=== PATIENT | male | born 1995 | race Caucasian/White ===

== ENCOUNTER 2023-12-27 10:55 | Emergency (ER) | payer OTHER, SELFPAY ==
--- NOTE | ~2023-12-27 | CT_ITS ---
EXAMINATION: CT lumbar spine wo con DATE: 12/27/2023 11:53 INDICATION: Low back pain. TECHNIQUE: Computed tomography (CT) of the lumbar spine was performed without intravenous contrast. A utomated exposure control and iterative reconstruction technique were employed. The dose-length produ ct was 174.27 mGy-cm. COMPARISON: None FINDINGS: There is 7 degrees dextrocurvature of lumbar spine. There is mild chronic anterior wedging of L1 and L2 vertebral bodies. There are Schmorl's nodes at multiple levels. There is 3 mm retrolisth esis of L5 on S1. There is mildly decreased disc height at L3-L4, L4-L5, and L5-S1. The following dis c levels are specifically discussed: L1-L2: The disc does not extend beyond the endplate margin. There is mild bilateral facet joint osteo arthritis. There is no neural foraminal stenosis. There is no central canal stenosis. L2-L3: The disc does not extend beyond the endplate margin. There is mild bilateral facet joint osteo arthritis. There is no neural foraminal stenosis. There is no central canal stenosis. L3-L4: The disc does not extend beyond the endplate margin. There is moderate bilateral facet joint o steoarthritis. There is no neural foraminal stenosis. There is no central canal stenosis. L4-L5: The disc is bulging. There is mild bilateral facet joint osteoarthritis. There is no neural fo raminal stenosis. There is mild central canal stenosis. L5-S1: The disc is bulging. There is moderate right and mild left facet joint osteoarthritis. There i s mild left neural foraminal stenosis. There is mild central canal stenosis. IMPRESSION: 1. Mild lumbar spondylosis. Reviewed, dictated and finalized at location A. ION COORDINATOR IMPRESSION: 1. Mild lumbar spondylosis.
--- NOTE | ~2023-12-27 | CT_ITS ---
EXAMINATION: CT pelvis wo con DATE: 12/27/2023 11:53 INDICATION: Left hip pain. Pelvic pain. TECHNIQUE: Computed tomography (CT) of the pelvis was performed without intravenous contrast. Automat ed exposure control and iterative reconstruction technique were employed. The dose-length product was 160.06 mGy-cm. COMPARISON: None FINDINGS: There is a large volume of stool in the colon. There is distention of the rectosigmoid. Bon e alignment is normal. No fracture. There is mild lumbar spondylosis. There is mild osteoarthritis of the hips. IMPRESSION: 1. Mild osteophytes of the hips. 2. Large volume of stool in the colon with distention of the rectosigmoid. Reviewed, dictated and finalized at location A. OR CONTRACT SPECIALIST
--- NOTE | 2023-12-27 10:58 | ED.EXTPRO ---
HPI - Extremity Problem General Chief complaint: Extremity Problem,Nontraumatic Stated complaint: PAIN ALL OVER 'FIDELIA TOTTER PELVIS' Time Seen by Provider: 12/27/23 10:58 Source: patient Mode of arrival: ambulatory Limitations: no limitations History of Present Illness HPI Narrative: Dennis is a 28-year-old male patient presenting to the ER today with complaints of left-sided hip pain that is radiating down his left leg. States that he went to a chiropractor and the chiropractor tried to adjust his hip/back and he developed worsening of pain. Also reports that the chiropractor did some x-rays and felt as though his hip/pelvis was twisted. Denies any saddle anesthesia or loss of bowel or bladder. Denies any known injury. Related Data Allergies Allergy/AdvReac Type Severity Reaction Status Date / Time methylprednisolone AdvReac Nausea Verified 12/27/23 11:33 [From Solu-Medrol] Review of Systems Review of Systems: Pertinent positives per HPI. Patient denies any fever, chills, rash, headache, visual changes, dizziness, cough, runny nose, sore throat, shortness of breath, chest pain, palpitations, nausea, vomiting, diarrhea, constipation, abdominal pain, or any urinary issues. PMFSH Comments At the time of my signature, I reviewed and agree with the nursing past medical, surgical, social, and family history. There is no relevant family history pertinent to the patient complaint. Exam Narrative: General: Well-developed, well nourished, in no apparent distress Head: Normocephalic, atraumatic. Cardio: Regular rate and rhythm, s1 and s2 normal, no murmur appreciated. Resp: Clear to auscultation bilaterally, no rhonchi, rales, wheezing or rubs. Musculoskeletal: No deformity, tender to palpation over the left glut/pelvis, limited range of motion to the left hip due to pain, weak left dorsal flexion/plantar flexion when compared to the right, peripheral pulse strong, no edema, no cyanosis, normal gait and station Course Course Emergency Course: Portions of this record may have been created with voice recognition software. Vital Signs Vital signs: Vital signs reviewed MDM - Extremity (Nontraumatic) MDM Narrative Medical decision making narrative: At the time of visit patient is lying on the exam table. Appears to be and significant pain. Patient appears to be nontoxic. Labs: CBC shows white blood cell count 4.3, H&H 14.442.2, platelet count is 163, chemistry shows sodium level 142, potassium 4.2, chloride 6, carbon dioxide of 31, BUN of 14, creatinine is 0.9, GFR is greater than 60, liver function test within normal limits, Diagnostics: CT of the lumbar spine shows mild lumbar spondylosis, CT of pelvis shows mild osteophytes of the hips and large volume of stool in the colon with distention of the rectosigmoid Medications given: 4 mg of morphine IV and 4 mg of Zofran IV Plan: Patient's pains much improved after morphine and Zofran. I suspect patient has constipation, gluteal pain/likely deep gluteal pain syndrome, supportive measures were discussed with the patient and they voiced understanding discharge instructions and agrees to treatment plan. Return precautions reviewed Differential Diagnosis Differential diagnosis: Likely other (Osteoarthritis, constipation, gluteal pain, quad equina syndrome) Discharge Plan Discharge Clinical Impression: Gluteal pain, Constipation, Osteoarthritis of both hips, Lumbar spondylosis Patient Disposition: Home, Self-Care Condition: Stable Instructions: Antibiotic Form, Constipation (ED), Osteoarthritis (ED), Pelvic Pain (ED) Additional Instructions: CT of lumbar spine shows mild lumbar spondylosis CT of pelvis shows mild osteoarthritis of the hips with a large volume of stool in the colon I suspect possible deep gluteal syndrome and constipation May take Tylenol/Motrin as needed for pain Increase fluids and stay well hydrated Increase fiber in
[2023-12-27 11:05] VITALS: BP 147/99; PULSE 98; RESP 12; TEMP 36.8; O2SAT 99
[2023-12-27 11:31] LABS: Basophils Percent Auto 0.2 % (0.2-1.2); Eosinophils Absolute Auto 0.1 K/mm3 (0-0.3); Eosinophils Percent Auto 1.9 % (0-4.4); Hematocrit 42.2 % (42.0-52.0); Hemoglobin 14.4 g/dL (14.0-18.0); Lymphocytes Absolute Auto 1.85 K/mm3 (0.9-3.2); Lymphocytes Percent Auto 43.2 % (18.3-44.2); Mean Corpuscular HGB Conc 34.1 g/dl (32-36); Mean Corpuscular Hemoglobin 30.9 pg (26-34); Mean Corpuscular Volume 90.6 fl (80-100); Mean Platelet Volume 9.8 fl (7.4-10.4); Monocytes Absolute Auto 0.3 K/mm3 (0.1-0.6); Monocytes Percent Auto 6.5 % (2.6-8.5); Neutrophils Absolute Auto 2.1 K/mm3 (1.3-6.7); Neutrophils Percent Auto 48.2 % (45.5-73.1); Platelet Count Result 163 k/mm3 (150-375); Red Blood Count 4.66 M/mm3 (4.6-6.20); Red Cell Distribution Width 12.3 % (11.5-14.5); White Blood Count 4.3 K/mm3 (4.5-10.0)
[2023-12-27] MEDS: MORPHINE SULFATE (*CRX) 4 MG/ML INJ IV PUSH (11:34)
[2023-12-27] MEDS: ONDANSETRON INJ 4 MG/2 ML VIAL IV PUSH (11:34)
[2023-12-27 11:41] LABS: Alanine Aminotransferase 9 U/L (6-50); Albumin Level 4.5 g/dL (3.5-5.1); Alkaline Phosphatase 61 U/L (38-126); Anion Gap 5 mmol/L (8-16); Aspartate Amino Transferase 21 U/L (17-59); Bilirubin,Total 0.6 mg/dL (0.2-1.3); Blood Urea Nitrogen 14 mg/dL (9-20); Calcium 9.6 mg/dL (8.4-10.2); Carbon Dioxide 31 mmol/L (22-30); Chloride 106 mmol/L (98-107); Estimated Glomerular Filt Rate > 60; Glucose 73 mg/dL (65-110); Potassium 4.2 mmol/L (3.4-5.0); Sodium 142 mmol/L (137-145)
[2023-12-27 12:23] VITALS: BP 130/84; O2SAT 99
== END 2023-12-27 12:30 | disposition home or self-care (01) ==
PROVIDERS: Emergency Provider Nurse Practitioner Family
DX: M16.0 Bilateral primary osteoarthritis of hip (principal); M47.816 Spondylosis without myelopathy or radiculopathy, lumbar region; K59.00 Constipation, unspecified; M54.50 Low back pain, unspecified
CPT/HCPCS: 36415; 72131; 72192; 80053; 85025; 96374; 96375; 99284; J2270; J2405

== ENCOUNTER 2024-04-25 20:36 | Emergency (ER) | payer OTHER, SELFPAY ==
--- NOTE | ~2024-04-25 | XR_ITS ---
EXAM: XR hip LT 2V w AP pelvis DATE: 04/25/2024 20:56 HISTORY: left hip pain; NO INJURY . COMPARISON: CT pelvis 12/27/2023. FINDINGS: Normal mineralization. No fracture or dislocation. No lytic or blastic lesion. Mild degene rative change in the bilateral hips and pubic symphysis. No erosion or periosteal change. Soft tissue s within normal limits. IMPRESSION: Mild degenerative changes in the bilateral hips and pubic symphysis. No acute osseous fin ding in the pelvis or left hip. Reviewed, dictated and finalized at location K. IMPRESSION: Mild degenerative changes in the bilateral hips and pubic symphysis . No acute osseous finding in the pelvis or left hip.
[2024-04-25 20:43] VITALS: BP 148/90; PULSE 67; RESP 17; TEMP 36.6; O2SAT 100
--- NOTE | 2024-04-25 22:17 | ED.LOWEXIN ---
HPI - Extremity Injury (Lower) General Chief Complaint: Extremity Injury, Lower Stated Complaint: left hip pain Time Seen by Provider: 04/25/24 21:36 Source: patient Mode of arrival: ambulatory Limitations: no limitations History of Present Illness HPI Narrative: This is a 28 year old male that presents to the ER for left sided low back pain. Ongoing for a year. Reports no recent injuries or trauma. Pain is worse with movement and relieved with rest. The pain radiates down his left leg. He has been taking Ibuprofen with some relief. He has not seen an orthopedics doctor for this. He did go to the Chiropractor and this seemed to make it worse. Denies numbness or weakness. Related Data Allergies Allergy/AdvReac Type Severity Reaction Status Date / Time methylprednisolone AdvReac Nausea Verified 04/25/24 20:44 [From Solu-Medrol] Review of Systems Review of Systems: CONSTITUTIONAL: Denies fever MUSCULOSKELETAL: Reports back pain, joint pain, and myalgia. NEUROLOGIC: Denies numbness, or weakness. All systems reviewed & are unremarkable except as noted in HPI and below PMFSH Past Medical History Medical History (Updated 04/25/24 @ 22:28 by Saniya Holt PA-C) History of autism Social History Social History (Updated 04/25/24 @ 22:22 by Saniya Holt PA-C) Smoking status: Never smoker Exam Narrative: GENERAL: Well-appearing, well-nourished, and in no acute distress. HEAD: Normocephalic, atraumatic. EYES: EOMI. CHEST: Clear to auscultation. No respiratory distress. No wheezes rales or rhonchi HEART: Regular rate and rhythm. No murmur heard. Normal peripheral pulses. BACK EXTREMITIES: Normal range of motion. No edema. Strength equal in bilateral lower extremities. Positive straight leg raise on the left. Normal DP pulse SKIN: Warm, dry, no rash. NEURO: No focal deficits. Alert and oriented x3. PSYCH: Normal mood and affect Course Course Emergency Course: Patient updated on his workup and agrees with plan of care Vital Signs Vital signs: Vital Signs Temperature 97.8 F 04/25/24 20:43 Pulse Rate 67 04/25/24 20:43 Respiratory Rate 17 04/25/24 20:43 Blood Pressure 148/90 H 04/25/24 20:43 Pulse Oximetry 100 07/01/24 20:43 Oxygen Delivery Room Air 04/25/24 20:43 Temperature 97.8 F 04/25/24 20:43 Pulse Rate 67 04/25/24 20:43 Respiratory Rate 17 04/25/24 20:43 Blood Pressure 148/90 H 04/25/24 20:43 Pulse Oximetry 100 04/25/24 20:43 Oxygen Delivery Room Air 04/25/24 20:43 MDM - Extremity Injury (Lower) MDM Narrative Medical decision making narrative: Patient presents to the ER for left sided low back pain radiating down the leg. Ongoing over the last year. He is afebrile and nontoxic appearing. He is neurologically intact. Reviewed his CT scan which did show some bulging discs in the low lumbar spine. No recent injuries or trauma. Patient instructed to have further follow up with PCP and neurosurgery, he was given warnings to return to the ER Differential Diagnosis Differential diagnosis: Likely other (lumbar radiculopathy, hip strain, arthritis) Medical Records Attestation: I reviewed the patient's medical records. Medical records narrative: Lumbar spine CT 01/16 shows bulging discs at L4/5, L5/S1 Imaging Data Radiologist's impression: ITS Impressions Hip/Pelvis X-Ray 04/25/24 21:05 IMPRESSION: Mild degenerative changes in the bilateral hips and pubic symphysis. No acute osseous finding in the pelvis or left hip. Critical Care Time Critical Care Time Critical Care Time: No Discharge Plan Discharge Clinical Impression: Acute left lumbar radiculopathy Patient Disposition: Home, Self-Care Condition: Stable Instructions: Lumbar Radiculopathy (ED) Additional Instructions: Return to the ER if you experience weakness, numbness, bowel/bladder incontinence, or any other symptoms that are concerning to you Rest, use
[2024-04-25] MEDS: ACETAMINOPHEN 500 MG TABLET 1000 MG PO (22:24)
[2024-04-25] MEDS: diazePAM INJ (*CRX) 10 MG/2 ML SYRINGE 5 MG IM (22:25)
== END 2024-04-25 22:48 | disposition home or self-care (01) ==
PROVIDERS: Emergency Provider Physician Assistant
DX: M54.16 Radiculopathy, lumbar region (principal)
CPT/HCPCS: 73502; 96372; 99283; A9270; J3360